=== PATIENT | male | born 2000 | race Caucasian/White ===

== ENCOUNTER 2022-10-11 18:21 | Emergency (ER) | payer BC, MEDICAID ==
--- NOTE | 2022-10-11 19:47 | ERPHSYRPT ---
- History of Present Illness Time Seen by Provider: 10/11/22 19:42 Source: patient, family Exam Limitations: no limitations Patient Subjective Stated Complaint: Pt states "I stepped down and my left knee popped and then popped back in." Triage Nursing Assessment: Pt presented alert and oriented X3, skin pwd. Pt left knee swollen and tender. PT csm x 4. Physician History: pt twisted his left knee and has persisting swelling and pain since early this morning. No other injuries reported or symptoms. N/V intact, effusion tender medial and lateral stress, good pulses distally. discussed risks/benefits of Treatment with immob/crutches pain med narc and ice elevation as well as x-ray with pt and family and they wish to proceed. results discussed. family served as independent source for hx in ER. Method of Injury: twisted Occurred: this morning Quality: constant, sharpness Severity of Pain-Max: moderate Severity of Pain-Current: moderate Lower Extremities Pain: knee: left Modifying Factors: Improves With: cold therapy, immobilization, movement, pain medication Associated Symptoms: snapping sensation, popping sensation Allergies/Adverse Reactions: No Known Drug Allergies Allergy (Verified 03/20/15 09:41) Hx Tetanus, Diphtheria Vaccination/Date Given: Yes Hx Influenza Vaccination/Date Given: No Hx Pneumococcal Vaccination/Date Given: No Immunizations Up to Date: Yes Travel Risk - International Travel Have you traveled outside of the country in past 3 weeks: No - Coronavirus Screening Are you exhibiting any of the following symptoms?: No Close contact with a COVID-19 positive Pt in past 14-21 Days: No - Vaccine Status Have you recieved a Covid-19 vaccination: No - Review of Systems Constitutional: No Fever, No Chills Eyes: No Symptoms Ears, Nose, & Throat: No Symptoms Respiratory: No Cough, No Dyspnea Cardiac: No Chest Pain, No Edema, No Syncope Abdominal/Gastrointestinal: No Abdominal Pain, No Nausea, No Vomiting, No Diarrh ea Genitourinary Symptoms: No Dysuria Musculoskeletal: Joint Pain, Joint Swelling, No Back Pain, No Neck Pain Skin: No Rash Neurological: No Dizziness, No Focal Weakness, No Sensory Changes Psychological: No Symptoms Endocrine: No Symptoms Hematologic/Lymphatic: No Symptoms Immunological/Allergic: No Symptoms All Other Systems: Reviewed and Negative - Past Medical History Pertinent Past Medical History: Yes Neurological History: Migraines ENT History: No Pertinent History Cardiac History: No Pertinent History Respiratory History: No Pertinent History Endocrine Medical History: No Pertinent History Musculoskeletal History: No Pertinent History GI Medical History: No Pertinent History History: No Pertinent History Psycho-Social History: No Pertinent History Male Reproductive Disorders: No Pertinent History - Past Surgical History Past Surgical History: No Neuro Surgical History: No Pertinent History Cardiac: No Pertinent History Respiratory: No Pertinent History Gastrointestinal: No Pertinent History Genitourinary: No Pertinent History Musculoskeletal: No Pertinent History Male Surgical History: No Pertinent History - Social History Smoking Status: Current every day smoker How long have you smoked: years Exposure to second hand smoke: Yes Drug Use: marijuana Patient Lives Alone: No Significant Family History: no pertinent family hx - Nursing Vital Signs Nursing Vital Signs: Initial Vital Signs Temperature 97.6 F 10/11/22 18:27 Pulse Rate 106 H 10/11/22 18:27 Respiratory Rate 20 10/11/22 18:27 Blood Pressure 129/81 10/11/22 18:27 O2 Sat by Pulse Oximetry 98 10/11/22 18:27 Pain Scale Pain Intensity 5 - Physical Exam General Appearance: mild distress, alert Eyes, Ears, Nose, Throat Exam: moist mucous membranes Neck Exam: non-tender, supple Cardiovascular/Respiratory Exam: chest non-tender, normal breath sounds, regular rate/rhythm, no respiratory distress Gastrointestinal/Abdominal Exam: non-tender, guarding Back Exam: normal inspection, No vertebral tenderness Hips Exam: bilateral: non-tender, normal inspection, normal range of motion, no evidence of injury Legs Exam: bilateral leg: non-tender, normal inspection, normal range of motion, no evidence of injury Knees Exam: right knee: non-tender, normal inspection, normal range of motion, no evidence of injury, left knee: ecchymosis, joint effusion, pain, soft tissue tenderness, swelling Ankle Exam: bilateral ankle: non-tender, normal inspection, normal range of motion, no evidence of injury Foot Exam: bilateral foot: non-tender, normal inspection, normal range of motion, no evidence of injury DTR - Lower Extremities Exam: knee (R): 2+, knee (L): 2+, ankle (R): 2+, ankle (L): 2+ Neuro/Tendon Exam: normal sensation, normal motor functions Mental Status Exam: alert, oriented x 3, cooperative Skin Exam: normal color, warm, dry SpO2 Interpretation: normal SpO2: 98 O2 Delivery: Room Air Procedures - Splinting Location of Splint: Left, Knee Type of Splint: Other (immobilizer) Splint Applied By: ED Nurse Pre-Proc Neuro Vasc Exam: normal Post-Proc Neuro Vasc Exam: neurovascular intact, good alignment, unchanged from pre-exam - Course Nursing assessment & vital signs reviewed: Yes - Radiology Exams Left Knee X-ray Interpretation: Reviewed by me, Non-displaced Fracture, Subluxation (patella) Ordered Tests: Active Orders 24 hr Category Date Time Status KNEE (MIN 4 VIEW) Stat Exams 10/11/22 19:44 Taken Medication Summary Discontinued Medications Generic Name Dose Route Start Last Admin Trade Name Freq PRN Reason Stop Dose Admin Hydrocodone Bitart/Acetaminophen Confirm 10/11/22 20:17 Hydrocodone/Acetamin 10-325 Mg Tablet Administered 10/11/22 20:18 Dose 1 tablet .ROUTE .STK-MED ONE Hydrocodone Bitart/Acetaminophen 1 tablet 10/11/22 20:22 10/11/22 20:26 Hydrocodone/Acetamin 10-325 Mg Tablet PO 10/11/22 20:23 1 tablet STAT ONE Administration - Progress Progress: improved, re-examined Counseled pt/family regarding: diagnosis, need for follow-up, rad results Medical Desision Making - Independent Historian Additional History obtained from: Family - Diagnostic Testing Diagnostic test were ordered, analyzed, and reviewed by me: Yes Radiological Interpretation: Reviewed by me - Risk of complications The pt has a mod risk of morbidity or mortality based on: Need for prescription drug management - Departure Departure Disposition: Home Clinical Impression: Internal derangement of knee joint Condition: Good Critical Care Time: No Referrals: BEBETO SELF MD [Primary Care Provider] - Follow up/PCP as directed Instructions: Internal Derangement of the Knee (DC), Ligament Injuries in the Knee (DC), Tibial Plateau Fracture (DC) Additional Instructions: there may be some avulsion fractures and possiblly a tibial plateau fracture nondisplaced as well as the ligament and patella injuries which all require orthopedic treatment. return meantime if numbness or increased pain or other concerns. Prescriptions: Hydrocodone/Acetaminophen [Hydrocodone-Acetamin 7.5-325] 1 each PO Q4-6HPRN PRN 7 Days #14 tablet MDD 6 PRN Reason: Pain
[2022-10-11] MEDS ORDERED: HYDROCODONE-ACETAMIN 10-325 MG ONE ×2 (20:17→21:25)
[2022-10-11] MEDS ORDERED: HYDROCODONE-ACETAMIN 10-325 MG PO ONE ×2 (20:22→21:22)
[2022-10-11 21:12] VITALS: BP 151/77; PULSE 92
--- NOTE | 2022-10-11 21:17 | XRAY ---
Indication: Pain and popping following injury. Comparison: None 4 view left knee demonstrates lateral patella subluxation with large effusion. Incidental minimal medial joint space narrowing, small patella spurring, and posterior fabella. No other bony, articular, or soft tissue abnormalities.
[2022-10-11 21:20] VITALS: O2SAT 98
== END 2022-10-11 21:42 | disposition home or self-care (01) ==
LOC: ED 18:21
DX: M23.92 Unspecified internal derangement of left knee (principal); M25.562 Pain in left knee; Z79.891 Long term (current) use of opiate analgesic; Z28.310 Unvaccinated for COVID-19; Z72.0 Tobacco use
CPT/HCPCS: 73564; 99283; L1830; A9270-GY